=== PATIENT | male | born 2000 | race African-American/Black ===

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

== ENCOUNTER → 2022-03-21 | Outpatient (REF) | payer MEDICAID, OTHER ==
[2022-03-22 01:35] LABS: GC DNA AMPLIFICATION NEGATIVE (NEGATIVE)
== END ==
LOC: M LAB REF 23:40
PROVIDERS: ATTEND Physician Assistant
DX: Z11.3 Encounter for screening for infections with a predominantly sexual mode of transmission (principal)

== ENCOUNTER → 2022-04-17 | Outpatient (REF) | payer OTHER, MEDICAID ==
[2022-04-17 21:46] LABS: GC DNA AMPLIFICATION NEGATIVE (NEGATIVE)
== END ==
LOC: M SFHCPLAZ 17:01
PROVIDERS: ATTEND Physician Assistant
DX: R30.0 Dysuria (principal)

== ENCOUNTER → 2022-06-13 | Outpatient (CLI) | payer OTHER, MEDICAID ==
[2022-06-13 10:41] LABS: BASO # 0.1 10^3/uL (0.0-0.2); BASO % 0.8 % (0.0-1.0); EOS # 0.1 10^3/uL (0.0-0.5); EOS % 1.5 % (0.0-3.0); HEMATOCRIT 41.8 % (42.0-52.0); HEMOGLOBIN 14.2 g/dl (13.5-17.5); LYMPH # 3.1 10^3/uL (1.5-5.0); LYMPH % 51.2 % (24.0-44.0); MEAN CORPUSCULAR HEMOGLOBIN 30.1 pg (27.0-33.0); MEAN CORPUSCULAR VOLUME 88.6 fl (80.0-96.0); MONO # 0.5 10^3/uL (0.0-0.8); MONO % 8.6 % (2.0-8.0); NEUTROPHILS # 2.3 10^3/uL (1.5-8.5); NEUTROPHILS % 37.7 % (36.0-66.0); PLATELET COUNT, AUTOMATED 257 10^3/uL (150-450); RED BLOOD COUNT 4.72 10^6/uL (4.30-6.10)
[2022-06-13 11:44] LABS: ALBUMIN 4.3 GM/DL (3.2-5.2); ALT/SGPT 48 U/L (12-78); BILIRUBIN,TOTAL 0.5 MG/DL (0.2-1.0); BLOOD UREA NITROGEN 19 MG/DL (7-18); CALCIUM LEVEL 9.3 MG/DL (8.5-10.1); CARBON DIOXIDE LEVEL 31 MEQ/L (21-32); CHLORIDE LEVEL 103 MEQ/L (98-107); CHOLESTEROL LEVEL 198 MG/DL (<200); GLUCOSE, FASTING 90 MG/DL (70-100); HDL CHOLESTEROL 55 MG/DL (>40); LDL CHOLESTEROL 127 MG/DL (<100); NON-HDL-C 143 MG/DL; POTASSIUM SERUM 3.8 MEQ/L (3.5-5.1); SODIUM LEVEL 138 MEQ/L (136-145); TOTAL PROTEIN 7.7 GM/DL (6.4-8.2); TRIGLYCERIDES LEVEL 80 MG/DL (<150)
== END ==
LOC: M PLALAB 08:51
PROVIDERS: ATTEND Physician Assistant
DX: K21.9 Gastro-esophageal reflux disease without esophagitis (principal); Z13.220 Encounter for screening for lipoid disorders

== ENCOUNTER → 2022-06-30 | Outpatient (CLI) | payer OTHER | LOC: M RAD 11:52 | PROVIDERS: ATTEND Physician Assistant | DX: N50.812 Left testicular pain (principal) ==

== ENCOUNTER 2022-07-05 12:18 | Emergency (ER) | payer OTHER ==
[~2022-07-05] VITALS: Ht 167.6 cm; Wt 67.4 kg
[2022-07-05 13:09] LABS: BASO % 0.8 % (0.0-1.0); EOS # 0.2 10^3/uL (0.0-0.5); EOS % 3.1 % (0.0-3.0); HEMATOCRIT 44.7 % (42.0-52.0); HEMOGLOBIN 15.4 g/dl (13.5-17.5); LYMPH # 1.5 10^3/uL (1.5-5.0); LYMPH % 29.2 % (24.0-44.0); MEAN CORPUSCULAR HEMOGLOBIN 30.3 pg (27.0-33.0); MEAN CORPUSCULAR HGB CONC 34.5 g/dl (32.0-36.5); MEAN CORPUSCULAR VOLUME 87.8 fl (80.0-96.0); MONO # 0.4 10^3/uL (0.0-0.8); NEUTROPHILS # 3.1 10^3/uL (1.5-8.5); NEUTROPHILS % 59.5 % (36.0-66.0); PLATELET COUNT, AUTOMATED 232 10^3/uL (150-450); RED BLOOD COUNT 5.09 10^6/uL (4.30-6.10); WHITE BLOOD COUNT 5.2 10^3/uL (4.0-10.0)
[2022-07-05 14:01] VITALS: BP 120/81
== END 2022-07-05 14:06 | disposition home or self-care (01) ==
LOC: M ED 12:18
DX: R07.89 Other chest pain (principal); R06.02 Shortness of breath; R94.31 Abnormal electrocardiogram [ECG] [EKG]; F17.290 Nicotine dependence, other tobacco product, uncomplicated; F41.9 Anxiety disorder, unspecified

== ENCOUNTER → 2022-07-10 | Outpatient (REF) | payer OTHER ==
[2022-07-10 17:30] LABS: APPEARANCE, URINE MANUAL CLEAR (CLEAR); BILIRUBIN, URINE MANUAL NEGATIVE (NEGATIVE); BLOOD URINE MANUAL NEGATIVE (NEGATIVE); COLOR, URINE MANUAL YELLOW (YELLOW); GLUCOSE, URINE (UA) MANUAL NEGATIVE (NEGATIVE); KETONE, URINE MANUAL NEGATIVE (NEGATIVE); LEUKOCYTE ESTERASE, URINE MAN NEGATIVE (NEGATIVE); NITRITE, URINE MANUAL NEGATIVE (NEGATIVE); PROTEIN, URINE MANUAL NEGATIVE (NEGATIVE); SPECIFIC GRAVITY,URINE MANUAL 1.015 (1.002-1.035); UROBILINOGEN, URINE MANUAL NORMAL (NORMAL)
== END ==
LOC: M SFHCPLAZ 17:00
PROVIDERS: ATTEND Physician Assistant
DX: R30.0 Dysuria (principal)

== ENCOUNTER → 2022-08-29 | Outpatient (REF) | payer OTHER ==
[2022-08-29 22:08] LABS: GC DNA AMPLIFICATION NEGATIVE (NEGATIVE)
== END ==
LOC: M SFHCPLAZ 17:03
PROVIDERS: ATTEND Physician Assistant
DX: R36.9 Urethral discharge, unspecified (principal)

== ENCOUNTER → 2022-09-24 | Outpatient (CLI) | payer OTHER ==
[2022-09-24 15:28] LABS: HEPATITIS B SURFACE ANTIGEN NEGATIVE (NEGATIVE)
[2022-09-24 15:40] LABS: HIV 1&2 SCREEN CENTAUR NEGATIVE (NEGATIVE)
[2022-09-24 15:49] LABS: HEPATITIS B CORE ANTIBODY IGM NEGATIVE (NEGATIVE); HEPATITIS C VIRUS ABY INDEX 0.1 INDEX (<0.8)
[2022-09-24 17:21] LABS: APPEARANCE, URINE MANUAL CLEAR (CLEAR); COLOR, URINE MANUAL YELLOW (YELLOW)
[2022-09-24 17:22] LABS: BILIRUBIN, URINE MANUAL NEGATIVE (NEGATIVE); BLOOD URINE MANUAL NEGATIVE (NEGATIVE); GLUCOSE, URINE (UA) MANUAL NEGATIVE (NEGATIVE); KETONE, URINE MANUAL NEGATIVE (NEGATIVE); LEUKOCYTE ESTERASE, URINE MAN NEGATIVE (NEGATIVE); NITRITE, URINE MANUAL NEGATIVE (NEGATIVE); PROTEIN, URINE MANUAL TRACE mg/dL (NEGATIVE); UROBILINOGEN, URINE MANUAL NORMAL (NORMAL)
[2022-09-24 17:56] LABS: RBC, URINE 0-1 /hpf (0-3); WBC, URINE NONE SEEN /hpf (0-3)
[2022-09-24 17:57] LABS: BACTERIA, URINE SMALL AMOUNT; CALCIUM OXALATE CRYSTALS,URINE LARGE AMOUNT /hpf; HYALINE CAST, URINE NONE SEEN /lpf (0-1); MUCUS, URINE MOD AMOUNT (NEGATIVE); SQUAMOUS EPITHELIAL CELL URINE NONE SEEN /hpf (SMALL AMT)
[2022-09-24 19:05] LABS: GC DNA AMPLIFICATION NEGATIVE (NEGATIVE)
== END ==
LOC: M PLALAB 11:56
PROVIDERS: ATTEND Physician Assistant
DX: R30.0 Dysuria (principal); Z72.51 High risk heterosexual behavior; R36.9 Urethral discharge, unspecified

== ENCOUNTER 2022-11-08 04:52 | Emergency (ER) | payer OTHER ==
[~2022-11-08] VITALS: Ht 167.6 cm; Wt 63.6 kg
[2022-11-08] MEDS ORDERED: NS 1,000 ML IV ONE ×2 (05:10→10:00)
[2022-11-08 08:18] LABS: VENOUS BASE EXCESS -0.5 (-2.0-2.0); VENOUS HCO3 25.5 MEQ/L (23.0-27.0); VENOUS O2 SATURATION 95.7 % (60.0-80.0); VENOUS PARTIAL PRESSURE CO2 46.8 mmHg (38.0-50.0); VENOUS PH 7.354 UNITS (7.330-7.430); VENOUS TOTAL CO2 26.9 MEQ/L (24.0-28.0)
[2022-11-08 08:49] LABS: ETHYL ALCOHOL (ETHANOL) 0.208 % (0.000-0.010)
[2022-11-08 08:50] LABS: ACETAMINOPHEN LEVEL < 2.0 UG/ML (10.0-20.0)
[2022-11-08 08:51] LABS: ALBUMIN 4.2 G/DL (3.2-5.2); ALKALINE PHOSPHATASE 101 U/L (46-116); ALT/SGPT 34 U/L (7.0-40); AST/SGOT 29 U/L (<34); BILIRUBIN,DIRECT 0.2 MG/DL (<0.4); BILIRUBIN,TOTAL 0.4 MG/DL (0.3-1.2); BLOOD UREA NITROGEN 9 MG/DL (9-23); CALCIUM LEVEL 8.6 MG/DL (8.5-10.1); CARBON DIOXIDE LEVEL 27 MMOL/L (20-31); CHLORIDE LEVEL 108 MMOL/L (98-107); CPK CREATINE PHOSPHOKINASE 667 U/L (46-171); CREATININE FOR GFR 0.87 MG/DL (0.70-1.30); GLUCOSE, FASTING 86 MG/DL (60-100); POTASSIUM SERUM 4.3 MMOL/L (3.5-5.1); SALICYLATE LEVEL < 3.0 MG/DL (<30); SODIUM LEVEL 143 MMOL/L (136-145); TOTAL PROTEIN 7.6 G/DL (5.7-8.2)
[2022-11-08 08:53] LABS: THYROID STIMULATING HORMONE 0.978 uIU/ML (0.48-4.17)
[2022-11-08 11:14] LABS: BASO # 0.1 10^3/uL (0.0-0.2); BASO % 0.7 % (0.0-1.0); EOS # 0.2 10^3/uL (0.0-0.5); EOS % 2.5 % (0.0-3.0); HEMATOCRIT 42.5 % (42.0-52.0); HEMOGLOBIN 14.5 g/dl (13.5-17.5); LYMPH # 3.9 10^3/uL (1.5-5.0); LYMPH % 52.9 % (24.0-44.0); MEAN CORPUSCULAR HEMOGLOBIN 30.3 pg (27.0-33.0); MEAN CORPUSCULAR HGB CONC 34.1 g/dl (32.0-36.5); MEAN CORPUSCULAR VOLUME 88.9 fl (80.0-96.0); MONO # 0.4 10^3/uL (0.0-0.8); NEUTROPHILS # 2.8 10^3/uL (1.5-8.5); NEUTROPHILS % 38.6 % (36.0-66.0); PLATELET COUNT, AUTOMATED 306 10^3/uL (150-450); RED BLOOD COUNT 4.78 10^6/uL (4.30-6.10); WHITE BLOOD COUNT 7.3 10^3/uL (4.0-10.0)
[2022-11-08] MEDS ORDERED: LIDOCAINE W/EPINEPHRINE 1% 20ML VIAL SC STA (14:56)
[2022-11-08 16:30] LABS: AMPHETAMINES LEVEL URINE NEGATIVE (NEGATIVE); BARBITURATES URINE NEGATIVE (NEGATIVE); BENZODIAZEPINES URINE NEGATIVE (NEGATIVE); COCAINE METABOLITE URINE NEGATIVE (NEGATIVE); METHADONE URINE NEGATIVE (NEGATIVE); OPIATES URINE NEGATIVE (NEGATIVE); PHENCYCLIDINE URINE NEGATIVE (NEGATIVE)
[2022-11-08 16:31] LABS: CANNABINOIDS URINE POSITIVE (NEGATIVE)
[2022-11-08 17:16] VITALS: BP 112/67
== END 2022-11-08 17:25 | disposition home or self-care (01) ==
LOC: EDBD 04:52 → M ED 04:52
DX: F10.129 Alcohol abuse with intoxication, unspecified (principal); S01.81XA Laceration without foreign body of other part of head, initial encounter; F84.0 Autistic disorder; K21.9 Gastro-esophageal reflux disease without esophagitis; G47.00 Insomnia, unspecified

== ENCOUNTER → 2023-01-31 | Outpatient (CLI) | payer OTHER ==
[2023-01-31 09:39] LABS: BASO % 0.7 % (0.0-1.0); EOS # 0.1 10^3/uL (0.0-0.5); EOS % 1.4 % (0.0-3.0); HEMATOCRIT 45.8 % (42.0-52.0); HEMOGLOBIN 15.8 g/dl (13.5-17.5); LYMPH % 36.5 % (24.0-44.0); MEAN CORPUSCULAR HEMOGLOBIN 30.6 pg (27.0-33.0); MEAN CORPUSCULAR HGB CONC 34.5 g/dl (32.0-36.5); MEAN CORPUSCULAR VOLUME 88.6 fl (80.0-96.0); MONO # 0.4 10^3/uL (0.0-0.8); MONO % 6.7 % (2.0-8.0); NEUTROPHILS % 54.5 % (36.0-66.0); PLATELET COUNT, AUTOMATED 244 10^3/uL (150-450); RED BLOOD COUNT 5.17 10^6/uL (4.30-6.10); WHITE BLOOD COUNT 5.5 10^3/uL (4.0-10.0)
[2023-01-31 10:17] LABS: ALBUMIN 4.7 G/DL (3.2-5.2); ALKALINE PHOSPHATASE 99 U/L (46-116); ALT/SGPT 42 U/L (7.0-40); AST/SGOT 35 U/L (<34); BILIRUBIN,TOTAL 0.7 MG/DL (0.3-1.2); BLOOD UREA NITROGEN 22 MG/DL (9-23); CALCIUM LEVEL 9.3 MG/DL (8.5-10.1); CARBON DIOXIDE LEVEL 31 MMOL/L (20-31); CHLORIDE LEVEL 105 MMOL/L (98-107); CREATININE FOR GFR 1.02 MG/DL (0.70-1.30); GLUCOSE, FASTING 73 MG/DL (60-100); POTASSIUM SERUM 4.3 MMOL/L (3.5-5.1); SODIUM LEVEL 139 MMOL/L (136-145); THYROID STIMULATING HORMONE 0.356 uIU/ML (0.48-4.17)
[2023-02-02 16:08] LABS: TESTOSTERONE FREE (DIRECT) 6.1 pg/mL (9.3-26.5)
== END ==
LOC: M LAB 08:19
PROVIDERS: ATTEND Physician Assistant
DX: L65.9 Nonscarring hair loss, unspecified (principal)

== ENCOUNTER → 2023-03-25 | Outpatient (CLI) | payer MEDICAID, OTHER ==
[2023-03-25 15:56] LABS: PERCENT SATURATION 19.4 % (19.7-50.0)
[2023-03-25 16:00] LABS: FREE T4 1.37 NG/DL (0.83-1.43); THYROID STIMULATING HORMONE 0.997 uIU/ML (0.48-4.17)
[2023-03-25 16:01] LABS: FOLLICLE STIMULATING HORMONE 7.1 mIU/ML (1.4-18.1); LUTEINIZING HORMONE 4.2 mIU/ML (1.5-9.3); PROLACTIN 5.51 NG/ML (2.1-17.7)
[2023-03-27 16:09] LABS: TESTOSTERONE FREE (DIRECT) 7.5 pg/mL (9.3-26.5)
== END ==
LOC: M LAB 14:56
PROVIDERS: ATTEND Physician Assistant
DX: E29.1 Testicular hypofunction (principal); R79.89 Other specified abnormal findings of blood chemistry

== ENCOUNTER 2023-05-16 06:32 | Inpatient (IN) | payer MEDICAID, OTHER ==
[~2023-05-16] VITALS: Ht 167.6 cm; Wt 67.3 kg
[2023-05-16 07:16] LABS: HEMOGLOBIN 15.3 g/dl (13.5-17.5); MEAN CORPUSCULAR HEMOGLOBIN 29.9 pg (27.0-33.0); MEAN CORPUSCULAR HGB CONC 33.3 g/dl (32.0-36.5); MEAN CORPUSCULAR VOLUME 89.8 fl (80.0-96.0); PLATELET COUNT, AUTOMATED 252 10^3/uL (150-450); RED BLOOD COUNT 5.12 10^6/uL (4.30-6.10); WHITE BLOOD COUNT 5.6 10^3/uL (4.0-10.0)
[2023-05-16 07:34] LABS: AMPHETAMINES LEVEL URINE NEGATIVE (NEGATIVE); BARBITURATES URINE NEGATIVE (NEGATIVE); BENZODIAZEPINES URINE NEGATIVE (NEGATIVE); CANNABINOIDS URINE NEGATIVE (NEGATIVE); COCAINE METABOLITE URINE NEGATIVE (NEGATIVE); METHADONE URINE NEGATIVE (NEGATIVE); OPIATES URINE NEGATIVE (NEGATIVE); PHENCYCLIDINE URINE NEGATIVE (NEGATIVE)
[2023-05-16 07:37] LABS: ETHYL ALCOHOL (ETHANOL) 0.265 % (0.000-0.010)
[2023-05-16 07:38] LABS: ACETAMINOPHEN LEVEL < 2.0 UG/ML (10.0-20.0); SALICYLATE LEVEL < 3.0 MG/DL (<30)
[2023-05-16 07:39] LABS: ALKALINE PHOSPHATASE 116 U/L (46-116); ALT/SGPT 32 U/L (7.0-40); AST/SGOT 24 U/L (<34); BILIRUBIN,DIRECT 0.1 MG/DL (<0.4); BILIRUBIN,TOTAL 0.3 MG/DL (0.3-1.2); BLOOD UREA NITROGEN 14 MG/DL (9-23); CALCIUM LEVEL 9.5 MG/DL (8.5-10.1); CARBON DIOXIDE LEVEL 30 MMOL/L (20-31); CHLORIDE LEVEL 107 MMOL/L (98-107); CREATININE FOR GFR 0.96 MG/DL (0.70-1.30); GLUCOSE, FASTING 93 MG/DL (60-100); POTASSIUM SERUM 4.2 MMOL/L (3.5-5.1); SODIUM LEVEL 144 MMOL/L (136-145); TOTAL PROTEIN 8.6 G/DL (5.7-8.2)
[2023-05-16 07:41] LABS: THYROID STIMULATING HORMONE 0.664 uIU/ML (0.48-4.17)
[2023-05-16] MEDS ORDERED: MED REC IN PROGRESS XX SCH (09:10)
[2023-05-16] MEDS ORDERED: BIOT1CAP2 PO (17:29)
[2023-05-16] MEDS ORDERED: HOME MED LIST COMPLETE! XX SCH (17:30)
[2023-05-16] MEDS ORDERED: IBUPROFEN 600MG TAB PO ONE (20:45)
[2023-05-18] MEDS ORDERED: ACETAMINOPHEN TAB 650MG DOSE (2X325MG) PO PRN (12:50)
[2023-05-18] MEDS ORDERED: LORazepam 2 MG TAB PO PRN (12:50)
[2023-05-18] MEDS ORDERED: IBUPROFEN 400MG TAB PO PRN (12:50)
[2023-05-18] MEDS ORDERED: diphenhydrAMINE 25MG CAP PO PRN (12:50)
[2023-05-18] MEDS ORDERED: MAALOX 30 ML SUSP *UDC PO PRN (12:50)
[2023-05-18] MEDS ORDERED: MOM 30ML SUSPENSION UDC PO PRN (12:50)
[2023-05-18] MEDS: FOLIC ACID 1MG TAB PO SCH (13:36)
[2023-05-18] MEDS: MULTIVITAMINS/MINERALS THERAP 1 TAB PO SCH (13:37)
[2023-05-18] MEDS: THIAMINE 100 MG TAB PO SCH ×2 (13:37→21:44)
[2023-05-18 16:54] VITALS: BP 134/87; TEMP 97.1; O2SAT 99
[2023-05-18 16:56] VITALS: BP 134/87
[2023-05-18] MEDS: traZODone 50 MG TAB PO PRN (21:44)
[2023-05-18 23:35] VITALS: BP 100/72
[2023-05-18 23:40] VITALS: BP 100/72
[2023-05-19 06:00] VITALS: BP 116/72
[2023-05-19 06:16] VITALS: BP 116/72; TEMP 96.4; O2SAT 99
[2023-05-19] MEDS: FOLIC ACID 1MG TAB PO SCH (09:19)
[2023-05-19] MEDS: MULTIVITAMINS/MINERALS THERAP 1 TAB PO SCH (09:19)
[2023-05-19] MEDS: THIAMINE 100 MG TAB PO SCH ×2 (09:19→21:17)
[2023-05-19] MEDS: NICOTINE 14 MG/24 HR TRANSDERMAL TD SCH (10:13)
[2023-05-19 19:03] VITALS: BP 144/65; TEMP 97.9
[2023-05-19] MEDS: traZODone 50 MG TAB PO PRN (21:17)
[2023-05-19 21:23] VITALS: BP 141/84
[2023-05-20 06:20] VITALS: BP 118/56; TEMP 97.6; O2SAT 99
[2023-05-20] MEDS: FOLIC ACID 1MG TAB PO SCH (09:48)
[2023-05-20] MEDS: MULTIVITAMINS/MINERALS THERAP 1 TAB PO SCH (09:48)
[2023-05-20] MEDS: THIAMINE 100 MG TAB PO SCH (09:48)
[2023-05-20] MEDS: NICOTINE 14 MG/24 HR TRANSDERMAL TD SCH (09:49)
[2023-05-20] MEDS ORDERED: TRAZ-252 PO (11:54)
[2023-05-20] MEDS ORDERED: NICO14PA TD (11:54)
== END 2023-05-20 14:07 | disposition home or self-care (01) | DRG 775 ==
LOC: M ED 06:32 → M ED INP 05-18 12:50 → M PSY 05-18 16:40
PROVIDERS: ADMIT Student in an Organized Health Care Education/Training Program; ATTEND Student in an Organized Health Care Education/Training Program
DX: F10.24 Alcohol dependence with alcohol-induced mood disorder (principal); F84.0 Autistic disorder; F17.290 Nicotine dependence, other tobacco product, uncomplicated; F10.229 Alcohol dependence with intoxication, unspecified; F12.10 Cannabis abuse, uncomplicated; Z62.811 Personal history of psychological abuse in childhood; Z91.010 Allergy to peanuts

== ENCOUNTER 2025-07-10 12:27 | Emergency (ER) | payer BC, MEDICAID, OTHER ==
[~2025-07-10] VITALS: Ht 167.6 cm; Wt 69.6 kg
[~2025-07-10 12:27] MED LIST changes: +BIOT1CAP2 PO; +NICO14PA TD; +TRAZ-252 PO
[2025-07-10 12:30] VITALS: BP 137/65; TEMP 96.6; O2SAT 96
[2025-07-10 13:56] LABS: KETONE, URINE AUTO RFX TRACE mg/dL (NEGATIVE); LEUKOCYTE ESTERASE UR AUTO RFX NEGATIVE (NEGATIVE); MUCUS, URINE RFX SMALL (NEGATIVE); NITRITE, URINE AUTO RFX NEGATIVE (NEGATIVE); RBC, URINE AUTO RFX 0 /HPF (0-3); SQUAM EPITHELIAL CELL UR AURFX 0 /HPF (0-6); WBC, URINE AUTO RFX 1 /HPF (0-3)
[2025-07-10] MEDS ORDERED: DOXY100C3 PO (15:00)
[2025-07-10] MEDS: LIDOCAINE 1% SDV 5 ML VIAL DILUENT ONE (15:00)
[2025-07-10] MEDS: cefTRIAXone 500 MG VIAL IM ONE (15:00)
[2025-07-10 15:16] LABS: Trichomonas vaginalis (AMP) NOT DETECTED (NEGATIVE)
[2025-07-10 15:40] LABS: GC DNA AMPLIFICATION NEGATIVE (NEGATIVE)
== END 2025-07-10 15:13 | disposition home or self-care (01) ==
LOC: M ED 12:27
DX: N45.1 Epididymitis (principal); Z79.2 Long term (current) use of antibiotics
CPT/HCPCS: 76870; 81001; 87661; 87810; 87850; 93976; 96372; 99283; J0696